=== PATIENT | female | born 1960 | race Caucasian/White ===

== ENCOUNTER 2020-05-16 09:25 | Day surgery (SDC) | payer OTHER ==
[2020-05-16] MEDS: Lactated Ringers 1,000 ML IV SCH ×2 (10:12→10:25)
[2020-05-16] MEDS ORDERED: DIPRIVAN 200 MG/20 ML IV ONE ×5 (11:21→12:31)
[2020-05-16] MEDS ORDERED: Xylocaine-Mpf 2% 5 Ml Vial ONE (11:21)
[2020-05-16] MEDS ORDERED: SUBLIMAZE 100 MCG/2 ML ONE (11:44)
[2020-05-16] MEDS ORDERED: Zofran 4 MG/2 ML VIAL ONE (12:04)
[2020-05-16] MEDS ORDERED: Versed 2 MG/2 ML Injection ONE (12:43)
[2020-05-16] MEDS ORDERED: GlucaGen 1 MG ONE (12:43)
[2020-05-16 13:54] VITALS: O2SAT 99
--- NOTE | 2020-05-16 14:01 | HP ---
Please see the written H&P on the chart as well. HISTORY OF PRESENT ILLNESS: This is a 60 year-old female with history of polyps who presents for colonoscopy for surveillance. She is also having belching, indigestion, bloating and reflux and is going to be getting an EGD as well. PAST MEDICAL/SURGICAL HISTORY: Includes polyps, COPD, asthma. Tubal ligation, knee surgery, right leg surgery. MEDICATIONS: Pravastatin, Albuterol, Fluticasone, vitamins, Zyrtec, omeprazole. ALLERGIES: NKDA. SOCIAL HISTORY: No tobacco. No alcohol use. FAMILY HISTORY: Diabetes. PHYSICAL EXAMINATION: GENERAL: No acute distress. CVS: Regular rate and rhythm. PULMONARY: Nonlabored. ABDOMEN: Soft, nontender, nontender. EXTREMITIES: Normal. DIAGNOSIS: Reflux, indigestion, history of polyps. PLAN: EGD and colonoscopy.
[2020-05-16 14:03] VITALS: BP 133/90; PULSE 67
--- NOTE | 2020-05-16 14:26 | OP ---
PROCEDURE DATE/TIME: 05/16/2020 1130 PREOPERATIVE DIAGNOSIS: Indigestion, reflux and colon polyps in the past here for surveillance. POSTOPERATIVE DIAGNOSIS: Peptic ulcer disease, mild gastroesophageal reflux disease, multiple colonic polyps, diverticulosis, internal and external hemorrhoids with one small thrombosed external hemorrhoid (posterior). PROCEDURES: 1) EGD with biopsy. 2) Colonoscopy with hot snare polypectomy x3 and hot forceps polypectomy x5. PROCEDURE PERFORMED BY: Janet Day M.D. ANESTHESIA: MAC. ESTIMATED BLOOD LOSS: Minimal. COMPLICATIONS: None. SPECIMENS: 1) Gastric antrum; rule out Helicobacter pylori. 2) Cecal polyp, ascending colon polyps x2, hepatic flexure polyp, transverse colon polyp, sigmoid polyp x2, rectal polyp x1. HISTORY: This is a patient who presents for EGD and colonoscopy. DESCRIPTION OF PROCEDURE: The patient was brought back to the endoscopy suite after confirming her H&P and consent and answering any remaining questions. She was then laid in the left lateral decubitus position. A complete time out performed. The scope gently introduced into the mouth, oropharynx and down into the esophagus, stomach and duodenum. The duodenum was normal. In the stomach antrum there were three small antral ulcers the largest size was about 6 mm. Two were closer to the pylorus. The third was slightly higher up in the mid gastric antrum. None of them are bleeding. There were no visible vessel in any of these. There was no old blood in the stomach. Mild gastritis here. The scope was retroflexed. No obvious hiatal hernia. The remainder of the stomach was normal. Antral biopsy taken to rule out Helicobacter pylori, two pieces taken and sent to pathology. Site hemostatic. Scope was then carefully withdrawn. The gastroesophageal junction showed very minimal gastric reflux with very subtle reflux changes. No signs of Cardenas's at all. The scope was then completely removed. The patient tolerated this part of the procedure well. She was then repositioned for colonoscopy. First a rectal exam. There was a small thrombosed posterior hemorrhoid. She also has internal and external hemorrhoid disease this is moderate. The scope is then inserted and gently advanced to the level of the cecum slightly angulated at the region of the sigmoid and we did use some gentle abdominal pressure to help guide the scope. We were able to navigate to the cecum without issue. Small polyps identified in the cecum at the appendiceal orifice taken with hot forceps. We then proceeded to identify numerous other polyps. There were two in the ascending colon taken with hot forceps hidden behind fold. There was also another more difficult polyp removed at the hepatic flexure which was semi-pedunculated. There were also polyps in the transverse colon and sigmoid colon taken with hot snare. Another sigmoid colon polyp taken with hot forceps and then a rectal polyp taken with hot forceps. All polyps looked benign. All were taken in entirety. All specimens retrieved all sent to pathology. Everything is hemostatic. All polyps were more sessile in nature except for the hepatic flexure polyp which was a semi-pedunculated polyp. The polyps ranged from approximately 3 mm in size up to about 8 mm in size and overall we took out three with the hot snare and five with the hot forceps. Again the cecal polyp at the appendiceal orifice taken with hot forceps. Ascending colon x2 taken with hot forceps. Sigmoid polyp x1 taken with hot forceps. Rectal polyp x1 taken with hot forceps. Hepatic flexure polyp x1 taken with hot snare. Transverse colon polyp x1 taken with hot snare. Sigmoid polyp x1 taken with hot snare. The patient also had diverticulosis in the descending and the sigmoid colon. Other than that and the hemorrhoids there were no other findings. She tolerated the procedure very well. There were no immediate complications. I discussed the results with the patient postoperatively. She is going to be following up with me in a month. I have written her for Carafate. We will repeat her EGD in two to three months due to the ulcer disease and due to the finding of multiple difficult polyps hiding behind folds and many of them flat, I will plan to do another colonoscopy in two years on her.
== END 2020-05-16 14:11 | disposition home or self-care (01) ==
LOC: SDC 09:25
PROVIDERS: ATTEND Surgery
DX: Z09 Encounter for follow-up examination after completed treatment for conditions other than malignant neoplasm (principal); K21.9 Gastro-esophageal reflux disease without esophagitis; K57.30 Diverticulosis of large intestine without perforation or abscess without bleeding; K64.8 Other hemorrhoids; K64.5 Perianal venous thrombosis; K27.9 Peptic ulcer, site unspecified, unspecified as acute or chronic, without hemorrhage or perforation; D12.2 Benign neoplasm of ascending colon; D12.3 Benign neoplasm of transverse colon
CPT/HCPCS: J1610; J2250; J2405; J2704; J3010

== ENCOUNTER 2020-07-18 09:00 | Day surgery (SDC) | payer OTHER ==
[~2020-07-18 09:00] MED LIST: Lactated Ringers 1,000 ML IV SCH
--- NOTE | 2020-07-18 10:24 | HP ---
HISTORY OF PRESENT ILLNESS: This is a patient who has a history of peptic ulcer disease. She is here for EGD. Risks, benefits and alternatives had been discussed with her preoperatively. Her COVID test preoperatively was negative. PAST MEDICAL/SURGICAL HISTORY: Includes peptic ulcer disease, chronic obstructive pulmonary disease, asthma, tubal ligation, knee surgery, right leg surgery. MEDICATIONS: Pravastatin, albuterol, fluticasone, fiber, vitamin E, Zyrtec, omeprazole, B12, D3, Elderberry. ALLERGIES: NKDA. SOCIAL HISTORY: No tobacco. No alcohol abuse. FAMILY HISTORY: Diabetes. No colorectal cancer known to her. PHYSICAL EXAMINATION: GENERAL: No acute distress. CVS: Regular rate and rhythm. PULMONARY: Nonlabored. ABDOMEN: Soft, nontender, nondistended. Her epigastric pain is improving but does occasionally have epigastric pain and pressure. EXTREMITIES: Normal. DIAGNOSIS: Peptic ulcer disease. PLAN: EGD.
[2020-07-18] MEDS ORDERED: Xylocaine-Mpf 2% 5 Ml Vial ONE (11:20)
[2020-07-18] MEDS ORDERED: DIPRIVAN 200 MG/20 ML IV ONE ×2 (11:20→11:25)
[2020-07-18 12:34] VITALS: O2SAT 99
[2020-07-18 12:49] VITALS: BP 140/73; PULSE 47
--- NOTE | 2020-07-18 14:05 | OP ---
PROCEDURE DATE/TIME: 07/18/2020 1120 PREOPERATIVE DIAGNOSES: 1) Peptic ulcer disease. 2) Reflux. POSTOPERATIVE DIAGNOSES: 1) Hiatal hernia. 2) Reflux. 3) Killed/resolved peptic ulcer disease. PROCEDURE: EGD with biopsy. PROCEDURE PERFORMED BY: Janet Day M.D. ESTIMATED BLOOD LOSS: Minimal. ANESTHESIA: MAC. COMPLICATIONS: None. SPECIMEN: Gastroesophageal junction reflux changes biopsied. HISTORY: This is a patient who presents with history of peptic ulcer disease here for surveillance scope to insure resolution. Her symptoms have improved. She does have occasional epigastric pain and pressure. The H&P and consent are all reviewed with her and confirmed. DESCRIPTION OF PROCEDURE: She was brought back to the endoscopy suite, laid in the left lateral decubitus position. A complete time out performed. The scope gently into the mouth, oropharynx, down to the esophagus, stomach, duodenum. The duodenum is normal. In the stomach there are three ulcer sites that were previously very obvious are now faint scars. She does not have any significant gastritis here. We retroflexed the scope this view the hiatal hernia is not visible. I do not see any masses or other lesions in the stomach. The scope was slowly withdrawn to the gastroesophageal junction. Here there is one small new area which looks like a reflux change. It has a small island about 1.5 cm above her usual Z-line. Subtle weakness here subjective of a possible trace hiatal hernia versus just a physiologic weakness. This one mucosal irregularity does look benign. I did biopsy it and send it to pathology. This site was hemostatic after biopsy and the scope was completely removed. The remainder of the esophagus is normal. The patient tolerated the procedure very well. No immediate complications. She is going to be continuing on her proton pump inhibitor. We will stop her Carafate and we will plan her next EGD as needed, sooner if there are any concerning finding on the final pathology results.
== END 2020-07-18 12:58 | disposition home or self-care (01) ==
LOC: SDC 09:00
PROVIDERS: ATTEND Surgery
DX: K44.9 Diaphragmatic hernia without obstruction or gangrene (principal); K21.9 Gastro-esophageal reflux disease without esophagitis; Z87.11 Personal history of peptic ulcer disease
CPT/HCPCS: J2704

== ENCOUNTER 2020-09-19 11:05 | Day surgery (SDC) | payer OTHER ==
--- NOTE | 2020-09-19 08:19 | HP ---
AMENDED REPORT: HISTORY OF PRESENT ILLNESS: This is a patient who presents with upper abdominal pain that is worse after she eats. She does have a history of peptic ulcer disease in the past and she did also have EGD and treatment for this as a well as a work up for her gallbladder. PAST MEDICAL/SURGICAL HISTORY: Peptic ulcer disease, chronic obstructive pulmonary disease, asthma, hysterectomy, tubal ligation, knee surgery, right leg surgery, scope. MEDICATIONS: Pravastatin, Albuterol, fluticasone, fiber, vitamin E, Zyrtec, omeprazole, B12, vitamin D, elderberry. Stayed off Celebrex. ALLERGIES: NKDA. SOCIAL HISTORY: No tobacco use. No alcohol use. FAMILY HISTORY: Diabetes. No colorectal cancer. PHYSICAL EXAMINATION: GENERAL: No acute distress. CVS: Regular rate and rhythm. PULMONARY: Nonlabored. ABDOMEN: Soft, minimally tender to palpation in the epigastric region. No rebound. No guarding. LAB DATA AND TESTS: White blood cell count 8.5, hemoglobin 14, PLT count 194,000. Total and direct bilirubin as well as ALT, AST and alkaline phosphatase are all within normal limits. Protein level normal. Amylase level normal. Creatinine, sodium, potassium, glucose all normal. Calcium normal. She has had ultrasound, HIDA and then she showed me her MRI report from [facility] [place]. She clinically appears to have chronic cholecystitis with biliary dyskinesia. DIAGNOSIS: Chronic cholecystitis with biliary dyskinesia. PLAN: Laparoscopic cholecystectomy.
[~2020-09-19 11:05] MED LIST changes: +DIPRIVAN 200 MG/20 ML IV ONE; +MEFOXIN 2 GM PREMIX** 2 GM/50 ML ML IV ONE; +SUBLIMAZE 250 MCG/5 ML ONE; +Sensorcaine 0.25% 10 ML ONE; +Versed 2 MG/2 ML Injection ONE; +Zemuron 100 MG/10 ML ONE
[2020-09-19] MEDS ORDERED: Lactated Ringers 1,000 ML IV ONE ×2 (11:15→16:32)
[2020-09-19] MEDS ORDERED: MEFOXIN 2 GM PREMIX** 2 GM/50 ML ML IV ONE (11:15)
[2020-09-19] MEDS ORDERED: Decadron 4 MG INJ ONE (13:57)
[2020-09-19] MEDS ORDERED: Zofran 4 MG/2 ML VIAL ONE ×3 (13:57→15:33)
[2020-09-19] MEDS ORDERED: APRESOLINE 20 MG/ML INJ ONE (14:05)
[2020-09-19] MEDS ORDERED: DILAUDID 2 MG INJECTION ONE (14:25)
[2020-09-19] MEDS ORDERED: BRIDION 200MG/2ML IV ONE (14:37)
[2020-09-19] MEDS ORDERED: Compazine 10 MG/2 ML ONE (14:58)
[2020-09-19] MEDS ORDERED: TORAdol 30 mg Injection ONE (15:11)
[2020-09-19] MEDS ORDERED: SUBLIMAZE 100 MCG/2 ML ONE ×2 (15:12→15:56)
[2020-09-19 17:24] VITALS: BP 121/60; PULSE 74; O2SAT 97
--- NOTE | 2020-09-21 09:56 | OP ---
PROCEDURE DATE/TIME: 09/19/2020 1323 PREOPERATIVE DIAGNOSIS: Chronic cholecystitis with biliary dyskinesia. POSTOPERATIVE DIAGNOSIS: Chronic cholecystitis with biliary dyskinesia. PROCEDURE: Laparoscopic cholecystectomy. PROCEDURE PERFORMED BY: Janet Day M.D. ESTIMATED BLOOD LOSS: Less than 10 cc. ANESTHESIA: General. COMPLICATIONS: None. SPECIMEN: Gallbladder. HISTORY: This is a patient who presents for cholecystectomy. Risks, benefits, alternatives, H&P, consent all reviewed with her and confirmed. She was seen personally before the procedure. Any remaining questions were answered. H&P confirmed and reviewed with her. DESCRIPTION OF PROCEDURE: She was then brought back to the operative suite. Anesthesia was induced. Prepped and draped in the usual sterile fashion. Orogastric tube inserted. A complete time out performed. Left upper quadrant incision made. Veress needle used to access the abdominal cavity. Good initial low insufflatory pressure. Abdomen insufflated easily and evenly. A 5 mm optical port placed at the same under direct visualization. No injury identified. The periumbilical port was then placed at the superior aspect of her umbilicus and then two side ports in the right upper quadrant as well. We did use all five ports and all were placed direct visualization. The liver was initially identified. She does appear to have a somewhat fatty appearing liver. The gallbladder was then able to be grasped. It was passed cephalad and lateral. We then carefully took down the adhesions and further retracted the gallbladder. The region of the cystic duct is rather scarred and angulated. I meticulously took these adhesions down and was able isolate the cystic duct. We then continued our dissection to isolate the cystic artery and then we further cleared the liver plate and then we continued this dissection up midway along the gallbladder to insure our anatomy. 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 We avoided this and kept the space. After finally clearing this and removing these adhesions, we then were able to very clearly identify our cystic duct and cystic artery. These were clipped, ligated, and then the gallbladder was taken off the liver bed. We were able to completely avoid the aberrant hepatic artery branch. I was very happy with our liver bed and the clips. There was no leakage of bile. No bleeding. Once the gallbladder is removed and it was able to be extracted through the left upper quadrant site. I did desufflate it and suctioned the bile to allow it to be removed through the small port and since I did have to widen my left upper quadrant trocar to remove the gallbladder through here, I did place a laparoscopic 0 suture to close this port due to gas leakage here. Once this was done we re-inspected. Our clips looked excellent. We had good hemostasis. I did use one small piece of Surgicel on the liver bed near to the hepatic artery and this is completely hemostatic. I removed the Surgicel. There are no concerning findings. We then removed the umbilical trocar with no issues and then we desufflated through a right upper quadrant port, removed these, irrigated and closed with buried 4-0 Monocryl, Steri-Strips and sterile dressing. The patient tolerated the procedure very well. No immediate complications. I have called her family to discuss her instructions as well as discussed her operative findings and results. She will also be following up with me as an outpatient.
== END 2020-09-19 17:25 | disposition home or self-care (01) ==
LOC: SDC 11:05
PROVIDERS: ATTEND Surgery
DX: K81.1 Chronic cholecystitis (principal); K82.8 Other specified diseases of gallbladder; Z79.899 Other long term (current) drug therapy
CPT/HCPCS: J0360; J0694; J1100; J1170; J1885; J2250; J2405; J2704; J3010

== ENCOUNTER 2022-05-21 10:31 | Day surgery (SDC) | payer OTHER ==
[2022-05-21] MEDS ORDERED: PROVENTIL 2.5 MG/3 ML NEB IH ONE ×2 (10:32→11:42)
[2022-05-21] MEDS ORDERED: Lactated Ringers 1,000 ML IV SCH (11:00)
[2022-05-21] MEDS ORDERED: Lactated Ringers 1,000 ML IV ONE ×2 (11:14→12:08)
[2022-05-21] MEDS ORDERED: Versed 2 MG/2 ML Injection ONE (11:25)
[2022-05-21] MEDS ORDERED: DIPRIVAN 200 MG/20 ML IV ONE ×5 (11:25→12:15)
[2022-05-21] MEDS ORDERED: SUBLIMAZE 100 MCG/2 ML ONE (11:36)
[2022-05-21 13:11] VITALS: BP 135/80; PULSE 56; O2SAT 97
--- NOTE | 2022-05-22 09:56 | OP ---
PROCEDURE DATE/TIME: 05/21/2022 1128 PREOPERATIVE DIAGNOSES: 1) Gastroesophageal reflux disease. 2) Dysphagia. 3) History of colon polyps due for surveillance. POSTOPERATIVE DIAGNOSES: 1) Gastritis. 2) Minimal hiatal hernia. 3) Gastroesophageal reflux disease. 4) Diverticulosis. 5) Colon polyps. PROCEDURES: 1) EGD with biopsy. 2) Colonoscopy with cold snare polypectomy and cold forceps polypectomy. PROCEDURE PERFORMED BY: Janet Day M.D. ANESTHESIA: MAC. ESTIMATED BLOOD LOSS: Minimal. COMPLICATIONS: None. SPECIMENS: 1) Antral biopsy. 2) Gastric body biopsy. 3) Distal esophagus biopsy. 4) Descending colon polyp x2. 5) Sigmoid colon polyp. HISTORY: This is a patient who presents for EGD and colonoscopy. Risks, benefits, alternatives, H&P, consent reviewed with her and confirmed. All questions answered to her satisfaction. DESCRIPTION OF PROCEDURE: She was then brought back to the endoscopy suite, laid in the left lateral decubitus position. A complete time out performed. First, the scope was inserted into the mouth, oropharynx, down the esophagus, stomach and the visualized portion of the duodenum which was advanced to approximately second portion of the duodenum was normal. The scope was then slowly withdrawn back into the stomach. In the stomach, the patient had gastritis this was most significant in the body of the stomach. She did have some old blood in her stomach which we irrigated free. The gastroesophageal junction was at 40 cm. She had a patch of irregular mucosa and a couple other smaller patches of irregular mucosa. These all appeared benign and were consistent clinically with gastritis this area of the stomach was biopsied directly biopsying the irregular inflamed appearing gastric mucosa and then we also separately biopsied the antrum and sent this also to rule out Helicobacter pylori. Both specimens were sent to pathology. Both sites were nicely hemostatic. On retroflex view, the patient had a subtle weakness at the gastroesophageal junction. No other concerning findings in the stomach. The scope is then carefully withdrawn back into the distal esophagus. She does have some gastroesophageal reflux disease here. Please note that the patient did have further work of breathing with upper scope. She did have a significant amount of abdominal breathing and myself and her anesthesia provider are very suspicious for sleep apnea as well. Her respiratory status made it difficult to take very specific bites of her esophagus in this region because she started breathing heavier as we were withdrawing the scope to this scope. At this point we then fully removed the scope. I did get a good look at the rest of the esophagus. There are no concerning lesions in the remainder of the esophagus. We gave her a breathing treatment prior to starting her colonoscopy. Due to her symptoms, we will be treating her with lifestyle changes and medication and then from there I would like to repeat EGD in approximately six months and with her in a better respiratory state I would like to biopsy her further at the distal esophagus if this looks the same at that time since I was only able to obtain one biopsy today due to her breathing pattern. The patient was very stable, looked great. She tolerated the colonoscopy without issues. To begin, we first did a rectal exam and inspection and then the scope was inserted and gently advanced to the level of the cecum. The appendiceal orifice and ileocecal valve were normal. The scope was then carefully withdrawn. She had a good prep. There were three polyps identified. The polyps were identified in the descending colon and sigmoid. The first polyp in the descending colon was small and flat. It was less than 5 mm. It was taken with cold snare in entirety. There were two further polyps one in the descending colon and one in the sigmoid colon that were both flat and small approximately 2 mm in size and these were taken entirely with cold forceps. All sites the polyps were removed fully and all sites were hemostatic. We then further withdrew the scope. The patient did have diverticulosis of her left colon with multiple diverticula. No other significant findings and the scope is fully removed. RECOMMENDATIONS: The plan will be for EGD in approximately six months and colonoscopy in approximately three years due to the history of polyps. She will also be following up with me as an outpatient in approximately one to two months to discuss the status of her reflux disease with the anti-reflux diet, lifestyle as well as medications and then we can also consider surgical options at that time.
== END 2022-05-21 13:20 | disposition home or self-care (01) ==
LOC: SDC 10:31
PROVIDERS: ATTEND Surgery
DX: Z09 Encounter for follow-up examination after completed treatment for conditions other than malignant neoplasm (principal); Z86.010 Personal history of colon polyps; K21.9 Gastro-esophageal reflux disease without esophagitis; R13.10 Dysphagia, unspecified; K29.70 Gastritis, unspecified, without bleeding; K44.9 Diaphragmatic hernia without obstruction or gangrene; K57.30 Diverticulosis of large intestine without perforation or abscess without bleeding; K63.5 Polyp of colon
CPT/HCPCS: 94640; J2250; J2704; J3010; J7609; A9270-GY

== ENCOUNTER 2022-10-01 12:09 | Emergency (ER) | payer MEDICARE, OTHER ==
--- NOTE | 2022-10-01 12:22 | ERPHSYRPT ---
- History of Present Illness Time Seen by Provider: 10/01/22 12:21 Historian: patient, family Exam Limitations: no limitations Patient Subjective Stated Complaint: pt here for pain under both ribs since this morning, she states htis has happened before . no injury, no fever, cough productive , Triage Nursing Assessment: pt alert, walked in, holding breasts, resp labored at times, holding breath at times, skin w/d/p. no edema noted, moves all ext weel Physician History: This is an overweight 62-year-old white female patient who has the complaint of sudden onset of bilateral midsternal superficial chest pain with associated productive cough. She has not had fever she has no history of injury. Onset was this morning. She had a similar episode in March 2022 and patient was diagnosed with pleurisy and given a prescription for antibiotic and a steroid which helped resolve her symptoms. Patient has a history of hyperlipidemia, DVT, history of asthma and COPD as well as gastroesophageal reflux disease and u lcer disease. Patient has no primary cardiac disease per her report. Patient has no complaints of abdominal pain. She has had no nausea vomiting or diarrhea. She has no genitourinary complaints. Timing/Duration: today Quality: sharpness Pain Radiation: no radiation Severity of Pain-Max: moderate Severity of Pain-Current: mild Modifying Factors: Improves With: nothing Associated Symptoms: chest pain (Anterior chest wall pain midsternal and bilateral) Previous symptoms: same symptoms as today, no recent treatment Allergies/Adverse Reactions: No Known Drug Allergies Allergy (Verified 10/01/22 12:17) Home Medications: Albuterol Sulfate [Ventolin Hfa] 18 gm IH UD PRN 05/06/20 [History] Cetirizine HCl [Zyrtec] 10 mg PO DAILY 05/06/20 [History] Fiber [Fiber Choice] 2 each PO DAILY 05/06/20 [History] Pravastatin Sodium 10 mg PO DAILY 05/06/20 [History] Tizanidine HCl 4 mg [Zanaflex 4 MG] 4 mg PO DAILY PRN PRN 09/19/20 [History] Tolterodine Tartrate [Tolterodine Tartrate ER] 4 mg PO DAILY 09/19/20 [History] Acetaminophen 500 mg [Tylenol Extra Strength 500 mg] 500 mg PO DAILY PRN PRN 04/30/22 [History] Gabapentin [Neurontin ] 300 mg PO TID 04/30/22 [History] Levothyroxine Sodium 25 Mcg [Synthroid 25 Mcg] 25 mcg PO DAILY 04/30/22 [History] Multivit-Min/Iron/Folic/Lutein [Centrum Silver Women Tablet] 1 tab PO DAILY 04/30/22 [History] Sennosides/Docusate Sodium [Senexon-S 50-8.6 mg Tablet] 1 tab PO DAILY 04/30/22 [History] Hx Tetanus, Diphtheria Vaccination/Date Given: No Hx Influenza Vaccination/Date Given: Yes Hx Pneumococcal Vaccination/Date Given: Yes Immunizations Up to Date: Yes Travel Risk - International Travel Have you traveled outside of the country in past 3 weeks: No - Coronavirus Screening Are you exhibiting any of the following symptoms?: No Close contact with a COVID-19 positive Pt in past 14-21 Days: No - Vaccine Status Have you recieved a Covid-19 vaccination: Yes 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 - Review of Systems Constitutional: No Symptoms Eyes: No Symptoms Ears, Nose, & Throat: No Symptoms Respiratory: Cough (Productive) Cardiac: Chest Pain (Anterior bilateral chest wall pain, mid sternum, sup erficial) Abdominal/Gastrointestinal: No Symptoms Genitourinary Symptoms: No Symptoms Musculoskeletal: No Symptoms Skin: No Symptoms Neurological: No Symptoms Psychological: No Symptoms Endocrine: No Symptoms Hematologic/Lymphatic: No Symptoms Immunological/Allergic: No Symptoms All Other Systems: Reviewed and Negative - Past Medical History Pertinent Past Medical History: Yes Neurological History: No Pertinent History ENT History: No Pertinent History Cardiac History: Deep Vein Thrombosis, High Cholesterol Respiratory History: Asthma, COPD Endocrine Medical History: No Pertinent History Musculoskeletal History: Arthritis, Other GI Medical History: GERD, Ulcer History: No Pertinent History Psycho-Social History: No Pertinent History Female Reproductive Disorders: No Pertinent History Other Medical History: Back pain, hiatal hernia - Past Surgical History Past Surgical History: Yes Neuro Surgical History: No Pertinent History Cardiac: No Pertinent History Respiratory: No Pertinent History Gastrointestinal: Cholecystectomy Genitourinary: No Pertinent History Musculoskeletal: Orthopedic Surgery Female Surgical History: Hysterectomy, Tubal Ligation Other Surgical History: two left knee surgeries, right leg nerve removed,uterine ablation,colonosocopy x2 with polyps,EGD x2 with hx ulcers,shots in back discagram, back surgery with metal in back x2, breast reduction - Social History Smoking Status: Former smoker Exposure to second hand smoke: No Drug Use: marijuana Patient Lives Alone: No - Nursing Vital Signs Nursing Vital Signs: Initial Vital Signs Pulse Rate 117 H 10/01/22 12:11 Respiratory Rate 15 10/01/22 12:11 Blood Pressure 165/118 10/01/22 12:11 O2 Sat by Pulse Oximetry 97 10/01/22 12:11 Pain Scale Pain Intensity 10 - Physical Exam General Appearance: no apparent distress, alert, anxiety Eye Exam: PERRL/EOMI, eyes nml inspection Ears, Nose, Throat Exam: normal ENT inspection, moist mucous membranes Neck Exam: normal inspection, non-tender, supple, full range of motion Respiratory Exam: normal breath sounds, chest tenderness (At the time of this examination her anterior chest wall pain), lungs clear ( has resolved significantly), airway intact, No respiratory distress Cardiovascular Exam: normal heart sounds, normal peripheral pulses, tachycardia (Mild) Gastrointestinal/Abdomen Exam: soft, normal bowel sounds, No tenderness Pelvic Exam: not done Rectal Exam: not done Back Exam: normal inspection, normal range of motion, vertebral tenderness, No CVA tenderness Extremity Exam: normal inspection, normal range of motion, pelvis stable Neurologic Exam: alert, oriented x 3, cooperative, 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 as tested, normal mood/affect, nml cerebellar function, nml station & gait, sensation nml Skin Exam: normal color, warm, dry Lymphatic Exam: No adenopathy SpO2 Interpretation: normal SpO2: 98 - Course Nursing assessment & vital signs reviewed: Yes EKG Interpreted by Me: RATE (62), Sinus Rhythm, NORMAL AXIS, NORMAL INTERVALS, NORMAL QRS, NORMAL ST-T, Other (No acute ischemic changes on today's twelve-lead EKG.) Ordered Tests: Active Orders 24 hr Category Date Time Status EKG-ER Only STAT Care 10/01/22 12:26 Active IV Insertion STAT Care 10/01/22 12:26 Active CHEST 1 VIEW (PORTABLE) Stat Exams 10/01/22 12:27 Completed BLOOD CULTURE Stat Lab 10/01/22 12:44 Received CBC W DIFF Stat Lab 10/01/22 12:44 Completed CMP Stat Lab 10/01/22 12:44 Completed D-DIMER QUANTITATIVE Stat Lab 10/01/22 12:44 Completed TROPONIN Q4H Lab 10/01/22 12:44 Completed TROPONIN Q4H Lab 10/01/22 16:30 Ordered TROPONIN Q4H Lab 10/01/22 20:30 Ordered Medication Summary Discontinued Medications Generic Name Dose Route Start Last Admin Trade Name Freq PRN Reason Stop Dose Admin Cephalexin HCl 500 mg 10/01/22 14:00 Cephalexin Mh500 Mg Capsule PO 10/01/22 14:01 STAT ONE Prednisone 20 mg 10/01/22 14:00 Prednisone 20 Mg Tablet PO 10/01/22 14:01 STAT ONE Lab/Rad Data: Laboratory Result Diagrams 10/01/22 12:44 10/01/22 12:44 Laboratory Results 10/01/22 10/01/22 10/01/22 Range/Units 12:44 12:44 12:44 WBC (4.0-10.5) x10^3/uL RBC (4.1-5.4) x10^6/uL Hgb (12.0-16.0) g/dL Hct (35-47) % MCV (78-100) fL MCH (26-32) pg MCHC (32-36) g/dL RDW (11.5-14.0) % Plt Count (150-450) x10^3/uL MPV (7.5-11.0) fL Gran % (36.0-66.0) % Immature Gran % (Auto) (0.00-0.4) % Nucleat RBC Rel Count (0.00-0.1) % Eos # (Auto) (0-0.5) x10^3/uL Immature Gran # (Auto) (0.00-0.03) x10^3u/L Absolute Lymphs (auto) (1.0-4.6) x10^3/uL Absolute Monos (auto) (0.0-1.3) x10^3/uL Absolute Nucleated RBC (0.00-0.01) x10^3u/L Lymphocytes % (24.0-44.0) % Monocytes % (0.0-12.0) % Eosinophils % (0.00-5.0) % Basophils % (0.0-0.4) % Absolute Granulocytes (1.4-6.9) x10^3/uL Basophils # (0-0.4) x10^3/uL D-Dimer 0.42 (0.0-0.50) mg/L Sodium 139 (137-145) mmol/L Potassium 4.2 (3.5-5.1) mmol/L Chloride 103 (98-107) mmol/L Carbon Dioxide 25 (22-30) mmol/L Anion Gap 15.4 H (5-15) MEQ/L BUN 11 (7-17) mg/dL Creatinine 0.93 (0.52-1.04) mg/dL Estimated GFR > 60.0 ML/MIN Glucose 99 (74-106) mg/dL Calcium 9.5 (8.4-10.2) mg/dL Total Bilirubin 0.40 (0.2-1.3) mg/dL AST 24 (14-36) U/L ALT 21 (0-35) U/L Alkaline Phosphatase 79 (38-126) U/L Troponin I < 0.012 (0.000-0.034) ng/mL Serum Total Protein 7.5 (6.3-8.2) g/dL Albumin 4.4 (3.5-5.0) g/dL / Range/Units 12:44 WBC 9.9 (4.0-10.5) x10^3/uL RBC 4.62 (4.1-5.4) x10^6/uL Hgb 14.1 (12.0-16.0) g/dL Hct 42.7 (35-47) % MCV 92.4 (78-100) fL MCH 30.5 (26-32) pg MCHC 33.0 (32-36) g/dL RDW 14.9 H (11.5-14.0) % Plt Count 217 (150-450) x10^3/uL MPV 11.5 H (7.5-11.0) fL Gran % 65.9 (36.0-66.0) % Immature Gran % (Auto) 0.2 (0.00-0.4) % Nucleat RBC Rel Count 0.0 (0.00-0.1) % Eos # (Auto) 0.04 (0-0.5) x10^3/uL Immature Gran # (Auto) 0.02 (0.00-0.03) x10^3u/L Absolute Lymphs (auto) 2.65 (1.0-4.6) x10^3/uL Absolute Monos (auto) 0.65 (0.0-1.3) x10^3/uL Absolute Nucleated RBC 0.00 (0.00-0.01) x10^3u/L Lymphocytes % 26.7 (24.0-44.0) % Monocytes % 6.5 (0.0-12.0) % Eosinophils % 0.4 (0.00-5.0) % Basophils % 0.3 (0.0-0.4) % Absolute Granulocytes 6.55 (1.4-6.9) x10^3/uL Basophils # 0.03 (0-0.4) x10^3/uL D-Dimer (0.0-0.50) mg/L Sodium (137-145) mmol/L Potassium (3.5-5.1) mmol/L Chloride (98-107) mmol/L Carbon Dioxide (22-30) mmol/L Anion Gap (5-15) MEQ/L BUN (7-17) mg/dL Creatinine (0.52-1.04) mg/dL Estimated GFR ML/MIN Glucose (74-106) mg/dL Calcium (8.4-10.2) mg/dL Total Bilirubin (0.2-1.3) mg/dL AST (14-36) U/L ALT (0-35) U/L Alkaline Phosphatase (38-126) U/L Troponin I (0.000-0.034) ng/mL Serum Total Protein (6.3-8.2) g/dL Albumin (3.5-5.0) g/dL - Progress Progress: improved, re-examined Progress Note: 10/01/22 13:53 The chest x-ray was interpreted by the radiologist and I reviewed the impression. This patient's x-ray is nonacute. There are chronic degenerative changes but no evidence of acute cardiopulmonary process. This patient's medical issue is 1 of moderate complexity. The level complexity and the work-up performed is based on review of the patient's past medical history, review of the patient's medication list, review of the patient's drug allergy list, history of present illness and physical findings on examination. The work-up includes twelve-lead EKG, troponin level, D-dimer level, chest x- ray, CBC and CMP. I reviewed the results of the work-up and there is no evidence of any acute cardiac pulmonary process. We will treat her for pleurisy as this is similar symptoms that she had before. We will write a prescription for Keflex and prednisone. She can follow-up with her primary care physician for further evaluation management. 10/01/22 14:03 The twelve-lead EKG performed at the time the patient arrived was relatively nondiagnostic she was thrashing around she had sinus tachycardia with a heart rate of 146 and borderline prolonged QT interval and borderline axis deviation. However, the patient was not laying still at that time. Patient is now much more calm and the pain has subsided. We will repeat the twelve-lead EKG at this time and that is the twelve-lead EKG that will be documented in the EKG documented site in the [facility] chart Counseled pt/family regarding: lab results, diagnosis, need for follow-up, rad results Medical Desision Making - Independent Historian Additional History obtained from: Spouse - Diagnostic Testing Diagnostic test were ordered, analyzed, and reviewed by me: Yes Radiological Interpretation: Reviewed by me, Teleradiologist Report - Risk of complications Low Risk: Low risk of morbidity from additional dx testing or treatment - Departure Departure Disposition: Home Clinical Impression: Pleuritic pain Condition: Stable Critical Care Time: No Referrals: GEORGINA SONI FOREX TRADER [Primary Care Provider] - Follow up/PCP as directed Additional Instructions: Take your antibiotics and steroids as prescribed. Continue your other medication as prescribed. Follow-up with your primary care provider today, 10/01/2022, for further evaluation management. Prescriptions: Prednisone 10 mg [Deltasone 10 mg] 10 mg PO TID #12 tablet Cephalexin Mh 500 mg [Keflex 500 mg] 500 mg PO TID #21 cap
[2022-10-01 12:49] LABS: Absolute Neutrophil Ct (ANC) 6.55 x10^3/uL (1.4-6.9); BASOPHIL % 0.3 % (0.0-0.4); Basophil (Absolute #) 0.03 x10^3/uL (0-0.4); Eosinophil % 0.4 % (0.00-5.0); Eosinophil (Absolute #) 0.04 x10^3/uL (0-0.5); Hematocrit 42.7 % (35-47); Hemoglobin 14.1 g/dL (12.0-16.0); IMMATURE GRAN # 0.02 x10^3u/L (0.00-0.03); IMMATURE GRAN % 0.2 % (0.00-0.4); Lymphocyte (Absolute #) 2.65 x10^3/uL (1.0-4.6); Lymphocytes % 26.7 % (24.0-44.0); Mean Cell Volume 92.4 fL (78-100); Mean Corpuscular Hemoglobin 30.5 pg (26-32); Mean Platelet Volume 11.5 fL (7.5-11.0); Monocyte (Absolute #) 0.65 x10^3/uL (0.0-1.3); Monocytes % 6.5 % (0.0-12.0); Neutrophil % 65.9 % (36.0-66.0); Platelet Count 217 x10^3/uL (150-450); Red Blood Count 4.62 x10^6/uL (4.1-5.4); Red Cell Distribution Width 14.9 % (11.5-14.0); White Blood Count 9.9 x10^3/uL (4.0-10.5)
--- NOTE | 2022-10-01 12:55 | XRAY ---
Indication: Cough and short of breath. Rib pain. Comparison: September 12, 2020 Portable apical lordotic chest demonstrates normal heart and lungs. Bony thorax intact again with mild degenerative changes and scoliosis. No new/acute findings.
[2022-10-01 13:04] LABS: ALBUMIN 4.4 g/dL (3.5-5.0); ALKALINE PHOSPHATASE 79 U/L (38-126); ANION GAP 15.4 MEQ/L (5-15); BLOOD UREA NITROGEN 11 mg/dL (7-17); CHLORIDE 103 mmol/L (98-107); Calcium 9.5 mg/dL (8.4-10.2); Carbon Dioxide 25 mmol/L (22-30); Creatinine 1 0.93 mg/dL (0.52-1.04); EST GLOMERULAR FILTRATION RATE > 60.0 ML/MIN; Glucose 99 mg/dL (74-106); Potassium 4.2 mmol/L (3.5-5.1); SGOT/AST 24 U/L (14-36); SGPT/ALT 21 U/L (0-35); SODIUM 139 mmol/L (137-145); Total Protein 7.5 g/dL (6.3-8.2)
[2022-10-01 13:24] VITALS: PULSE 67; O2SAT 98
[2022-10-01] MEDS ORDERED: DELTASONE 20 MG PO ONE (14:00)
[2022-10-01] MEDS ORDERED: KEFLEX 500 MG PO ONE (14:00)
[2022-10-01 14:09] VITALS: BP 136/95
[2022-10-01] MEDS ORDERED: DELTASONE 20 MG ONE (14:15)
[2022-10-01] MEDS ORDERED: KEFLEX 500 MG ONE (14:15)
== END 2022-10-01 14:24 | disposition home or self-care (01) ==
LOC: ED 12:09
DX: R07.81 Pleurodynia (principal); R05.9 Cough, unspecified; E78.5 Hyperlipidemia, unspecified; Z79.52 Long term (current) use of systemic steroids; Z79.899 Other long term (current) drug therapy
CPT/HCPCS: 36000; 36415; 71045; 80053; 84484; 85025; 85379; 87040; 93005; 99284; A9270-GY

== ENCOUNTER 2024-01-24 15:29 | Emergency (ER) | payer MEDICARE ==
[2024-01-24 15:46] VITALS: TEMP 96.5
--- NOTE | 2024-01-24 15:46 | ERPHSYRPT ---
- History of Present Illness Time Seen by Provider: 01/24/24 15:46 Source: patient, family Exam Limitations: no limitations Physician History: This is a 63-year-old white female patient who arrives by private vehicle secondary to vomiting and diarrhea as well as dizziness and weakness approximately 24 hours after receiving her first shot of Ozempic as well as 48 hours after receiving her flu shot. Yesterday evening she started not feeling well and today she started vomiting several times with associated diarrhea. She denies chest pain. She denies shortness of breath. She denies fevers and denies chills. Patient has a history of hyperlipidemia, asthma/COPD and gastroesophageal reflux disease. Timing/Duration: today, worse Severity: moderate Modifying Factors: Improves With: nothing Associated Symptoms: nausea, vomiting, loss of appetite, weakness (Area), other, No shortness of breath, No chills, No chest pain, No fever Allergies/Adverse Reactions: No Known Drug Allergies Allergy (Verified 01/24/24 15:46) Home Medications: Tolterodine Tartrate [Tolterodine Tartrate ER] 4 mg PO DAILY 09/19/20 [History] Gabapentin [Neurontin ] 100 mg PO TID 04/30/22 [History] Levothyroxine Sodium 25 Mcg [Synthroid 25 Mcg] 25 mcg PO DAILY 04/30/22 [History] Multivit-Min/Iron/Folic/Lutein [Centrum Silver Women Tablet] 1 tab PO DAILY 04/30/22 [History] Ferrous Sulfate 325 mg [Feosol 325 mg] 325 mg PO DAILY 01/24/24 [History] Fluticasone/Umeclidin/Vilanter [Trelegy Ellipta 100-62.5-25] 1 inh PO DAILY 01/24/24 [History] Montelukast Sodium 10 mg [Singulair 10 MG] 10 mg PO DAILY 01/24/24 [History] Prednisone 10 mg [Deltasone 10 mg] 10 mg PO UD PRN 01/24/24 [History] Rosuvastatin Calcium 20 mg PO DAILY 01/24/24 [History] Vonoprazan Fumarate [Voquezna] 20 mg PO DAILY 01/24/24 [History] Hx Tetanus, Diphtheria Vaccination/Date Given: No Hx Influenza Vaccination/Date Given: Yes Hx Pneumococcal Vaccination/Date Given: Yes Travel Risk - International Travel Have you traveled outside of the country in past 3 weeks: No - Emerging Infectious Disease Are you exhibiting symptoms associated with any current EIDs: No - Review of Systems Constitutional: Weakness Eyes: No Symptoms Ears, Nose, & Throat: No Symptoms Respiratory: No Symptoms Cardiac: No Symptoms Abdominal/Gastrointestinal: Nausea, Vomiting, Diarrhea, Appetite Changes, No Abdominal Pain, No Constipation Genitourinary Symptoms: No Symptoms Musculoskeletal: No Symptoms Skin: No Symptoms Neurological: Dizziness Psychological: No Symptoms Endocrine: No Symptoms Hematologic/Lymphatic: No Symptoms Immunological/Allergic: No Symptoms All Other Systems: Reviewed and Negative - Past Medical History Pertinent Past Medical History: Yes Neurological History: No Pertinent History ENT History: No Pertinent History Cardiac History: Deep Vein Thrombosis, High Cholesterol Respiratory History: Asthma, COPD Endocrine Medical History: No Pertinent History Musculoskeletal History: Arthritis, Other GI Medical History: GERD, Ulcer History: No Pertinent History Psycho-Social History: No Pertinent History Female Reproductive Disorders: No Pertinent History Other Medical History: Back pain, hiatal hernia - Past Surgical History Past Surgical History: Yes Neuro Surgical History: No Pertinent History Cardiac: No Pertinent History Respiratory: No Pertinent History Gastrointestinal: Cholecystectomy Genitourinary: No Pertinent History Musculoskeletal: Orthopedic Surgery Female Surgical History: Hysterectomy, Tubal Ligation Other Surgical History: two left knee surgeries, right leg nerve removed,uterine ablation,colonosocopy x2 with polyps,EGD x2 with hx ulcers,shots in back discagram, back surgery with metal in back x2, breast reduction - Social History Smoking Status: Former smoker Exposure to second hand smoke: No Drug Use: marijuana Patient Lives Alone: No - Nursing Vital Signs Nursing Vital Signs: Initial Vital Signs Temperature 96.5 F 01/24/24 15:38 Pulse Rate 55 L 01/24/24 15:38 Blood Pressure 155/80 01/24/24 15:38 O2 Sat by Pulse Oximetry 98 01/24/24 15:38 Pain Scale Pain Intensity 3 - Physical Exam General Appearance: mild distress, alert, anxiety, obese Eye Exam: PERRL/EOMI, eyes nml inspection Ears, Nose, Throat Exam: normal ENT inspection, moist mucous membranes Neck Exam: normal inspection, non-tender, supple, full range of motion Respiratory Exam: normal breath sounds, lungs clear, airway intact, No chest tenderness, No respiratory distress Cardiovascular Exam: regular rate/rhythm, normal heart sounds, normal peripheral pulses Gastrointestinal/Abdomen Exam: soft, normal bowel sounds, No tenderness Pelvic Exam: not done Rectal Exam: not done Back Exam: normal inspection, normal range of motion, No CVA tenderness, No vertebral tenderness Extremity Exam: normal inspection, normal range of motion, pelvis stable Neurologic Exam: alert, oriented x 3, cooperative, cripple cutter II-XII nml as tested, nml cerebellar function, nml station & gait, sensation nml Skin Exam: normal color, warm, dry Lymphatic Exam: No adenopathy SpO2 Interpretation: normal O2 Delivery: Room Air - Course Nursing assessment & vital signs reviewed: Yes EKG Interpreted by Me: RATE (58), Sinus Rhythm, NORMAL AXIS, NORMAL INTERVALS, NORMAL QRS, NORMAL ST-T, Other (No acute ischemic changes on today's twelve-lead EKG. QTc is 432.) Ordered Tests: Active Orders 24 hr Category Date Time Status IV Insertion STAT Care 01/24/24 16:38 Active AMYLASE Stat Lab 01/24/24 16:38 Completed CBC W DIFF Stat Lab 01/24/24 16:38 Completed CMP Stat Lab 01/24/24 16:38 Completed CULTURE,URINE Stat Lab 01/24/24 16:38 Received LIPASE Stat Lab 01/24/24 16:38 Completed Lactic Acid Stat Lab 01/24/24 16:44 Completed TROPONIN Q4H Lab 01/24/24 17:39 Completed TROPONIN Q4H Lab 01/24/24 21:15 Ordered TROPONIN Q4H Lab 01/25/24 01:15 Ordered UA W/RFX UR CULTURE Stat Lab 01/24/24 16:38 Completed Medication Summary Discontinued Medications Generic Name Dose Route Start Last Admin Trade Name Freq PRN Reason Stop Dose Admin Sodium Chloride 1,000 mls @ 999 mls/hr 01/24/24 16:35 01/24/24 17:42 Sodium Chloride 0.9% 1000 Ml IV 01/24/24 17:35 Infused .Q1H1M STA Infusion Sodium Chloride Confirm 01/24/24 16:39 Sodium Chloride 0.9% 1000 Ml Administered 01/24/24 16:40 Dose 1,000 mls @ ud .ROUTE .STK-MED ONE Ondansetron HCl 4 mg 01/24/24 16:21 01/24/24 16:23 Zofran 4 Mg/Udtablet Orally Disintegrating PO 01/24/24 16:22 4 mg STAT ONE Administration Ondansetron HCl Confirm 01/24/24 16:22 Zofran 4 Mg/Udtablet Orally Disintegrating Administered 01/24/24 16:23 Dose 4 mg .[email or web address] ONE Prochlorperazine Edisylate 5 mg 01/24/24 16:57 01/24/24 17:00 Prochlorperazine Edisylate 10 Mg/2 Ml Vial IV 01/24/24 16:58 5 mg STAT ONE Administration Prochlorperazine Edisylate Confirm 01/24/24 16:59 Prochlorperazine Edisylate 10 Mg/2 Ml Vial Administered 01/24/24 17:00 Dose 10 mg .ROUTE .[employer] ONE Lab/Rad Data: Laboratory Result Diagrams 01/24/24 16:38 01/24/24 16:38 Laboratory Results 01/24/24 01/24/24 01/24/24 Range/Units 17:39 16:44 16:38 WBC (3.98-10.04) x10^3/uL RBC (3.93-5.22) x10^6/uL Hgb (11.2-15.7) g/dL Hct (34.1-44.9) % MCV (79.4-94.8) fL MCH (25.6-32.2) pg MCHC (32.2-35.5) g/dL RDW (11.7-14.4) % Plt Count (182-369) x10^3/uL MPV (9.4-12.3) fL Gran % (34.0-71.1) % Immature Gran % (Auto) (0.001-0.429) % Nucleat RBC Rel Count (0.00-0.2) % Eos # (Auto) (0.04-0.36) x10^3/uL Immature Gran # (Auto) (0.001-0.031) x10^3u/L Absolute Lymphs (auto) (1.18-3.74) x10^3/uL Absolute Monos (auto) (0.24-0.86) x10^3/uL Absolute Nucleated RBC (0.00-0.012) x10^3u/L Lymphocytes % (19.3-51.7) % Monocytes % (4.7-12.5) % Eosinophils % (0.7-5.8) % Basophils % (0.1-1.2) % Absolute Granulocytes (1.56-6.13) x10^3/uL Basophils # (0.01-0.08) x10^3/uL Sodium 141 (135-145) mmol/L Potassium 4.0 (3.5-5.1) mmol/L Chloride 107 (98-107) mmol/L Carbon Dioxide 23 (22-30) mmol/L Anion Gap 14.6 (5-15) MEQ/L BUN 11 (7-17) mg/dL Creatinine 0.85 (0.52-1.04) mg/dL Estimated GFR 77.9 ML/MIN Glucose 125 H (74-106) mg/dL Lactic Acid 1.7 (0.4-2.0) Calcium 9.7 (8.4-10.2) mg/dL Total Bilirubin 0.70 (0.2-1.3) mg/dL AST 29 (14-36) U/L ALT 25 (0-35) U/L Alkaline Phosphatase 87 (38-126) U/L Troponin I < 0.012 (0.000-0.033) ng/mL Serum Total Protein 7.3 (6.3-8.2) g/dL Albumin 4.4 (3.5-5.0) g/dL Amylase 85 (30-110) U/L Lipase 49 (23-300) U/L Urine Color (Yellow) Urine Appearance (Clear) Urine pH (4.6-8.0) Ur Specific Thornton (1.005-1.030) Urine Protein (Negative) Urine Glucose (UA) (Negative) mg/dL Urine Ketones (Negative) Urine Blood (Negative) Urine Nitrite (Negative) Urine Bilirubin (Negative) Urine Urobilinogen (0.2) mg/dL Ur Leukocyte Esterase (Negative) U Hyaline Cast (Auto) (0-2) /LPF Urine Microscopic RBC (0-5) /HPF Urine Microscopic WBC (0-5) /HPF Ur Epithelial Cells (None Seen) /HPF Urine Bacteria (None Seen) /HPF Urine Culture Reflexed (NO) 01/24/24 01/24/24 Range/Units 16:38 16:38 WBC 9.6 (3.98-10.04) x10^3/uL RBC 4.65 (3.93-5.22) x10^6/uL Hgb 14.4 (11.2-15.7) g/dL Hct 42.4 (34.1-44.9) % MCV 91.2 (79.4-94.8) fL MCH 31.0 (25.6-32.2) pg MCHC 34.0 (32.2-35.5) g/dL RDW 13.2 (11.7-14.4) % Plt Count 200 (182-369) x10^3/uL MPV 11.3 (9.4-12.3) fL Gran % 81.8 H (34.0-71.1) % Immature Gran % (Auto) 0.3 (0.001-0.429) % Nucleat RBC Rel Count 0.0 (0.00-0.2) % Eos # (Auto) 0.02 L (0.04-0.36) x10^3/uL Immature Gran # (Auto) 0.03 (0.001-0.031) x10^3u/L Absolute Lymphs (auto) 1.29 (1.18-3.74) x10^3/uL Absolute Monos (auto) 0.39 (0.24-0.86) x10^3/uL Absolute Nucleated RBC 0.00 (0.00-0.012) x10^3u/L Lymphocytes % 13.4 L (19.3-51.7) % Monocytes % 4.1 L (4.7-12.5) % Eosinophils % 0.2 L (0.7-5.8) % Basophils % 0.2 (0.1-1.2) % Absolute Granulocytes 7.87 H (1.56-6.13) x10^3/uL Basophils # 0.02 (0.01-0.08) x10^3/uL Sodium (135-145) mmol/L Potassium (3.5-5.1) mmol/L Chloride (98-107) mmol/L Carbon Dioxide (22-30) mmol/L Anion Gap (5-15) MEQ/L BUN (7-17) mg/dL Creatinine (0.52-1.04) mg/dL Estimated GFR ML/MIN Glucose (74-106) mg/dL Lactic Acid (0.4-2.0) Calcium (8.4-10.2) mg/dL Total Bilirubin (0.2-1.3) mg/dL AST (14-36) U/L ALT (0-35) U/L Alkaline Phosphatase (38-126) U/L Troponin I (0.000-0.033) ng/mL Serum Total Protein (6.3-8.2) g/dL Albumin (3.5-5.0) g/dL Amylase (30-110) U/L Lipase (23-300) U/L Urine Color Yellow (Yellow) Urine Appearance Clear (Clear) Urine pH 6.5 (4.6-8.0) Ur Specific Thornton 1.020 (1.005-1.030) Urine Protein 30 (Negative) Urine Glucose (UA) Negative (Negative) mg/dL Urine Ketones 80 A (Negative) Urine Blood Large A (Negative) Urine Nitrite Negative (Negative) Urine Bilirubin Negative (Negative) Urine Urobilinogen 1.0 A (0.2) mg/dL Ur Leukocyte Esterase Trace A (Negative) U Hyaline Cast (Auto) 3-5 A (0-2) /LPF Urine Microscopic RBC 11-20 A (0-5) /HPF Urine Microscopic WBC 3-5 (0-5) /HPF Ur Epithelial Cells None Seen (None Seen) /HPF Urine Bacteria None Seen (None Seen) /HPF Urine Culture Reflexed YES (NO) - Progress Progress: improved, re-examined Progress Note: 01/24/24 17:06 My medical decision making and the assignment of moderate complexity to this patient's medical issue today is based on review of the patient's past medical history, review the patient's medication list, reviewed patient drug allergy list, history present illness and physical findings on examination. The workup in this patient includes intravenous line placement, twelve-lead EKG, troponin level, CBC, CMP, amylase, lipase, magnesium level, urinalysis, infusion of intravenous crystalloid and intravenous Zofran. Differential diagnosis includes but is not limited to dehydration, electrolyte abnormalities, urinary tract infection, pancreatitis 01/24/24 18:38 I interpreted the patient's laboratory data results. Based on the laboratory data results, the patient does have significant dehydration. No other acute, emergent medical findings are present. Clinically, the patient states she is feeling much better after infusion of the normal saline crystalloid solution. She is ready to go home. We will provide her outpatient prescription for Compazine. Counseled pt/family regarding: lab results, diagnosis Medical Desision Making - Independent Historian Additional History obtained from: Family - Diagnostic Testing Diagnostic test were ordered, analyzed, and reviewed by me: Yes - Risk of complications The pt has a mod risk of morbidity or mortality based on: Need for prescription drug management - Departure Departure Disposition: Home Clinical Impression: Medication reaction, Vomiting, Dehydration Condition: Stable Critical Care Time: No Referrals: VIMAL COELHO MD [Primary Care Provider] - Follow up/PCP as directed Additional Instructions: Avoid further use of Ozempic until you you have spoken to your prescribing provider and make them aware of your symptoms. Clear liquid diet for the next 24 hours and then slowly advance your diet. Avoid fatty greasy spicy foods. Take your other medications as prescribed. Prescriptions: Prochlorperazine Maleate 5 mg* [Compazine 5 MG] 5 mg PO Q8H PRN #10 tablet PRN Reason: Nausea/Vomiting
[2024-01-24] MEDS ORDERED: ZOFRAN ODT 4 MG ONE (16:22)
[2024-01-24] MEDS: ZOFRAN ODT 4 MG PO ONE (16:23)
[2024-01-24] MEDS ORDERED: Sodium Chloride 0.9% 1000 ML 1,000 ML ONE (16:39)
[2024-01-24] MEDS: Sodium Chloride 0.9% 1000 ML 1,000 ML IV STA (16:41)
[2024-01-24 16:44] LABS: Absolute Neutrophil Ct (ANC) 7.87 x10^3/uL (1.56-6.13); BASOPHIL % 0.2 % (0.1-1.2); Basophil (Absolute #) 0.02 x10^3/uL (0.01-0.08); Eosinophil % 0.2 % (0.7-5.8); Eosinophil (Absolute #) 0.02 x10^3/uL (0.04-0.36); Hematocrit 42.4 % (34.1-44.9); Hemoglobin 14.4 g/dL (11.2-15.7); IMMATURE GRAN # 0.03 x10^3u/L (0.001-0.031); IMMATURE GRAN % 0.3 % (0.001-0.429); Lymphocyte (Absolute #) 1.29 x10^3/uL (1.18-3.74); Lymphocytes % 13.4 % (19.3-51.7); Mean Cell Volume 91.2 fL (79.4-94.8); Mean Platelet Volume 11.3 fL (9.4-12.3); Monocyte (Absolute #) 0.39 x10^3/uL (0.24-0.86); Monocytes % 4.1 % (4.7-12.5); Neutrophil % 81.8 % (34.0-71.1); Platelet Count 200 x10^3/uL (182-369); Red Blood Count 4.65 x10^6/uL (3.93-5.22); Red Cell Distribution Width 13.2 % (11.7-14.4); White Blood Count 9.6 x10^3/uL (3.98-10.04)
[2024-01-24 16:50] LABS: ALBUMIN 4.4 g/dL (3.5-5.0); ANION GAP 14.6 MEQ/L (5-15); Appearance Clear (Clear); BILIRUBIN,TOTAL 0.7 mg/dL (0.2-1.3); Bacteria None Seen /HPF (None Seen); Bilirubin Negative (Negative); Blood Large (Negative); Calcium 9.7 mg/dL (8.4-10.2); Creatinine 1 0.85 mg/dL (0.52-1.04); EST GLOMERULAR FILTRATION RATE 77.9 ML/MIN; Epithelial Cells None Seen /HPF (None Seen); Glucose, Urine Negative (Negative); Ketones 80 (Negative); Leukocyte Esterase Trace (Negative); Nitrite Negative (Negative); Ph 6.5 (4.6-8.0); Protein,Urine Dip 30 (Negative); Total Protein 7.3 g/dL (6.3-8.2)
[2024-01-24] MEDS ORDERED: Compazine 10 MG/2 ML ONE (16:59)
[2024-01-24] MEDS: Compazine 10 MG/2 ML IV ONE (17:00)
[2024-01-24 18:32] VITALS: BP 137/81; PULSE 60; RESP 16; O2SAT 96
[2024-01-24] MEDS: Compazine 5 MG PO ONE (19:43)
== END 2024-01-24 19:44 | disposition home or self-care (01) ==
LOC: ED 15:29
DX: R11.2 Nausea with vomiting, unspecified (principal); T50.995A Adverse effect of other drugs, medicaments and biological substances, initial encounter; E86.0 Dehydration; R19.7 Diarrhea, unspecified; R42 Dizziness and giddiness; R53.1 Weakness; E78.5 Hyperlipidemia, unspecified; Z79.52 Long term (current) use of systemic steroids; Z79.899 Other long term (current) drug therapy
CPT/HCPCS: 36000; 36415; 80053; 81001; 82150; 83605; 83690; 84484; 85025; 87086; 96374; 99284; Q0162; A9270-GY